=== PATIENT | female | born 1975 ===

== ENCOUNTER 2020-03-05 10:00 | Outpatient (CLI) | payer MEDICAID ==
--- NOTE | 2020-03-05 11:45 | Consultation ---
DATE OF CONSULTATION: 03/05/2020 GASTROENTEROLOGY CONSULTATION CONSULTING PHYSICIAN: Bill Evans MD. CHIEF COMPLAINT: Pancreatitis, pancreatic lesion seen on MRI. HISTORY OF PRESENT ILLNESS: This 44-year-old female with history of alcoholism. Apparently, she has quit. Also history of gallstone pancreatitis requiring cholecystectomy. She is here because of the MRI showed evidence of 1.6 cm lesion in the uncinate process, and the patient had dilated pancreatic duct. The patient also complained of greasy stools. PAST MEDICAL HISTORY: 1. Gallstone pancreatitis. 2. Alcoholic pancreatitis. 3. Anxiety. 4. Bipolar disorder. PAST SURGICAL HISTORY: Cholecystectomy. MEDICATIONS: Please see medication reconciliation list. FAMILY HISTORY: Father had prostate cancer. SOCIAL HISTORY: The patient quit drinking about a week ago and smokes one pack of cigarettes per day. Denies any IV drug abuse. ALLERGIES: To sulfa. REVIEW OF SYSTEMS: A 10-point review of systems was performed and pertinent positives in HPI. PHYSICAL EXAMINATION: VITAL SIGNS: Temperature 97.2, blood pressure 120/76, pulse 92, and respirations 20. HEENT: Normocephalic and atraumatic. Sclerae are anicteric. NECK: Supple. No evidence of obvious lymphadenopathy. CARDIOVASCULAR: Regular rate and rhythm. Plus S1 and S2. LUNGS: Clear to auscultation bilaterally. ABDOMEN: Positive bowel sounds. Soft and nontender. No rebound. No guarding. No peritoneal sign. EXTREMITIES: No cyanosis, no clubbing, no edema. ASSESSMENT AND PLAN: This is a 44-year-old female with signs and symptoms of pancreatic insufficiency with greasy stool and weight loss. Also evidence of pancreatitis with dilated pancreatic duct on the MRI and also a lesion in the uncinate process. Plan to treat the patient with Creon 36K two tablets p.o. three times a day with meals and one tablet with . Also, we are going to try to schedule the patient for EUS. Bill Evans M.D. DR: NILAY JOB#: [id number] CC:
[2020-03-06 15:28] VITALS: BP 120/76
[2020-03-06] MEDS ORDERED: TRAZODONE HCL50 MG ORAL (15:44)
== END 2020-03-05 12:00 | disposition home or self-care (01) ==
LOC: PAN 10:00
DX: K85.90 Acute pancreatitis without necrosis or infection, unspecified (principal); Z90.49 Acquired absence of other specified parts of digestive tract; F41.9 Anxiety disorder, unspecified; F31.9 Bipolar disorder, unspecified; F17.210 Nicotine dependence, cigarettes, uncomplicated; R63.4 Abnormal weight loss
CPT/HCPCS: G0463